=== PATIENT | male | born 1945 | race Hispanic/Latino ===

== ENCOUNTER 2018-01-06 07:18 | Outpatient (CLI) | payer MEDICARE ==
--- NOTE | 2018-01-06 14:55 | PET Report ---
PET/CT:01/06/18 07:18:00 CLINICAL: Colon cancer staging. RADIOPHARMACEUTICAL: 15.7mCi F18-FDG. COMPARISON: None. TECHNIQUE- Following intravenous injection of F-18 FDG and an approximately 60 minute uptake period, CT and PET images from the mid skull to the upper thighs were acquired with the patient in the fasted state. No contrast was administered. The CT protocol used for this PET CT study is designed for attenuation correction and anatomic localization of PET abnormalities. This crew trainer CT is not desired to produce and cannot replace, [id number]-ch-rop-art diagnostic CT scans with specific imaging protocols for different body parts and indications. Plasma glucose at the time of this test: 107g/dl. The standardized uptake values (SUV) are normalized to patient body weight and indicate the highest activity concentration (SUV max) in a given disease site. FINDINGS: Brain--Physiologic FDG uptake in the visualized regions of the brain. Neck--Physiologic FDG uptake . Chest--Physiologic FDG uptake in mediastinal blood pool and myocardium. Lungs--No abnormal uptake. A few tiny calcified subcentimeter lung nodules involving the left upper lobe and bilateral lower lobes. No noncalcified pulmonary nodule or mass. Pleura/pericardium--No abnormal uptake. Thoracic nodes--No abnormal uptake. Bilateral calcified hilar lymph nodes and a few calcified mediastinal lymph nodes. Hepatobiliary--No abnormal uptake. Liver background SUV mean, as a reference for comparing FDG studies, is 3.1 . No liver mass. A few calcified granulomata scattered throughout the liver. Spleen--No abnormal uptake. A few calcified granulomata scattered throughout the spleen. Pancreas--No abnormal uptake. Adrenal Glands--No abnormal uptake. Kidneys/Ureters/Bladder--No abnormal uptake. Abdominopelvic Nodes--No abnormal uptake. Bowel/Peritoneum/Mesentery--An FDG avid mass of the ascending colon with SUV 9.4. The exact size of the mass is not well determine because of the absence of oral contrast and IV contrast. Circumferential wall thickening in the ascending colon measures 1.1 cm. Mild stranding in the adjacent mesocolon. No mesenteric lymphadenopathy. Physiologic uptake in a few small bowel loops of the left upper quadrant and probably benign uptake in the sigmoid colon. No diverticulosis or diverticulitis. Pelvic organs--No abnormal uptake. Benign calcifications of the prostate. Bones/Soft Tissues--No abnormal uptake. IMPRESSION-1. Right colon cancer with a single FDG avid mass in the ascending colon. 2. No evidence of atul, hepatic, pulmonary or skeletal metastasis. 3. Old granulomatous disease with a few bilateral calcified lung granulomata, scattered calcified hepatic granulomata and scattered calcified splenic granulomata.
== END 2018-01-06 07:19 | disposition home or self-care (01) ==
LOC: PET 07:18
PROVIDERS: ATTEND Internal Medicine Hematology & Oncology
DX: C18.9 Malignant neoplasm of colon, unspecified (principal); R91.8 Other nonspecific abnormal finding of lung field; K75.3 Granulomatous hepatitis, not elsewhere classified; N42.89 Other specified disorders of prostate; R53.1 Weakness; I25.10 Atherosclerotic heart disease of native coronary artery without angina pectoris; D50.0 Iron deficiency anemia secondary to blood loss (chronic)
CPT/HCPCS: 78815; 82962; A9552